=== PATIENT | female | born 1985 | race Caucasian/White ===

== ENCOUNTER → 2017-04-27 | Outpatient (CLI) | payer OTHER ==
[~2017-04-27] MED LIST: OXYC1SOL5 PO
== END ==
LOC: HPND 11:13
PROVIDERS: ATTEND Obstetrics & Gynecology
DX: O99.281 Endocrine, nutritional and metabolic diseases complicating pregnancy, first trimester (principal)
CPT/HCPCS: 36416; 76813

== ENCOUNTER 2017-10-29 06:10 | Inpatient (IN) | payer OTHER ==
[2017-10-29] VITALS (63 sets, daily range): BP systolic 66–137; BP diastolic 37–87; PULSE 63–140; RESP 7–18; TEMP 97.9–98.2; O2SAT 98–100
[~2017-10-29] VITALS: Ht 182.9 cm; Wt 109.0 kg
[2017-10-29] MEDS ORDERED: OXYTOCIN 30 UNITS/NS 500ML PREMIX IV SCH (07:30)
[2017-10-29] MEDS ORDERED: LEVO.125 PO (07:37)
[2017-10-29] MEDS ORDERED: ZANTTAB PO (07:38)
[2017-10-29] MEDS ORDERED: PRENTAB7 (07:38)
[2017-10-29 07:40] LABS: AUTOMATED NEUTROPHIL # 10.7 TH/MM3 (1.8-7.7); BASOPHIL # 0.1 TH/MM3 (0-0.2); BASOPHIL % 0.4 % (0.0-2.0); EOSINOPHIL # 0.3 TH/MM3 (0-0.4); EOSINOPHIL % 1.7 % (0.0-4.0); HEMATOCRIT 33.3 % (35.0-46.0); HEMOGLOBIN 11.1 GM/DL (11.6-15.3); LYMPH % 23.5 % (9.0-44.0); LYMPHOCYTE # 3.8 TH/MM3 (1.0-4.8); MEAN CELL VOLUME 84.3 FL (80.0-100.0); MEAN CORPUSCULAR HEMOGLOBIN 28.1 PG (27.0-34.0); MEAN CORPUSCULAR HGB CONC 33.3 % (32.0-36.0); MEAN PLATELET VOLUME 10.5 FL (7.0-11.0); MONO % 7.4 % (0.0-8.0); MONOCYTE # 1.2 TH/MM3 (0-0.9); PLATELET COUNT 212 TH/MM3 (150-450); RED BLOOD COUNT 3.95 MIL/MM3 (4.00-5.30)
[2017-10-29 07:47] LABS: BILIRUBIN, URINE NEG (NEG); BLOOD, URINE NEG (NEG); GLUCOSE,URINE NEG (NEG); KETONE, URINE NEG (NEG); MUCUS URINE FEW /lpf (OCC); NITRITE,URINE NEG (NEG); SQUAMOUS EPITHELIAL CELL URINE 1 /hpf (0-5); URINE COLOR LIGHT-YELLOW (YELLW/STRAW); URINE LEUKOCYTE ESTERASE NEG (NEG)
[2017-10-29] MEDS ORDERED: NS 1000 ML IV PRN (08:15)
[2017-10-29] MEDS ORDERED: LACTATED RINGER'S 1000 ML IV SCH (08:15)
[2017-10-29] MEDS ORDERED: ONDANSETRON HCL 4 MG/2 ML VIAL IV PUSH PRN (08:15)
[2017-10-29] MEDS ORDERED: CITRIC ACID-SODIUM CITRATE LIQ 30 ML UDC PO SCH (08:15)
[2017-10-29] MEDS ORDERED: LIDOCAINE HCL 1% 50 ML VIAL I-DERMAL PRN (08:15)
[2017-10-29] MEDS ORDERED: MINERAL OIL 10 ML VIAL TOPICAL PRN (08:15)
[2017-10-29] MEDS ORDERED: LIDOCAINE HCL 1% 50 ML VIAL INFIL PRN (08:15)
[2017-10-29] MEDS ORDERED: OXYTOCIN 30 UNITS 500ML PREMIX IV ONE (08:15)
[2017-10-29] MEDS ORDERED: LACTATED RINGER'S 1000 ML BOLUS IV PRN (08:15)
[2017-10-29] MEDS ORDERED: NS 500 ML BOLUS IV PRN (08:15)
[2017-10-29] MEDS ORDERED: ePHEDrine/NS 25 MG/5 ML SYRINGE ONE ×2 (08:52→09:19)
[2017-10-29] MEDS ORDERED: fentaNYL 2MCG-BUPIV 0.125% INJ 100 ML ONE (08:52)
[2017-10-29] MEDS ORDERED: BENZOCAINE 20% TOPICAL SPRAY 60 ML CAN TOPICAL PRN (12:30)
[2017-10-29] MEDS ORDERED: WITCH HAZEL 50%/GLYCERIN 12.5% 40 PAD JAR TOPICAL PRN (12:30)
[2017-10-29] MEDS ORDERED: ALUMINUM/MAGNESIUM/SIMETH 30 ML CUP PO PRN (12:30)
[2017-10-29] MEDS ORDERED: OXYTOCIN 30 UNITS-500ML PREMIX 500 ML IV SCH (12:30)
[2017-10-29] MEDS ORDERED: SODIUM CHLORIDE 0.9% FLUSH 10 ML FLUSH IV FLUSH PRN (12:30)
--- NOTE | 2017-10-29 12:47 | MH ---
cc: ELSI GILLIAM DATE OF ADMISSION: 10/29/2017 ADMITTING DIAGNOSIS Term . HISTORY OF PRESENT ILLNESS The patient is a 32-year-old, , white female para 2-0-1-2 and EDC of 11/05/17 by early ultrasound. Her course ws benign. She had normal first TM screen and Panorama testing. PAST MEDICAL HISTORY Right shoulder repair in 2006. MEDICATIONS Vitamins and thyroid. ALLERGIES NONE. TRANSFUSIONS None. OBSTETRICAL HISTORY Two vaginal delivers at term. SOCIAL HISTORY . 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 Alcohol, tobacco and drugs are none. PHYSICAL EXAMINATION GENERAL: A gravid white female, in no distress. HEENT: Exam is normal. CHEST: Chest is clear. HEART: Regular rate. BREASTS: The breasts were symmetrical. ABDOMEN: Benign. Gravid. EFW of 3800 grams. PELVIC: Cervix is now 5-6, 70%, vertex gestation, AROM clear. GBS negative. Anticipate vaginal discharge. MD MELQUIADES Olivia/BJF /9:58 AM /12:05 PM
[2017-10-29] MEDS ORDERED: ONDANSETRON ODT 4 MG TAB PO PRN (13:00)
[2017-10-29] MEDS ORDERED: DOCUSATE SODIUM 50 MG/SENNA 8.6 MG TAB PO PRN (13:15)
[2017-10-29] MEDS ORDERED: oxyCODONE/ACETAMINOPHEN 5 MG/325 MG TAB PO PRN ×2 (13:15)
[2017-10-29] MEDS: IBUPROFEN 800 MG TAB PO PRN ×2 (15:42→23:52)
[2017-10-29] MEDS ORDERED: DIPHTH/TETANUS/ACEL PERTUSSIS (BOOSTER) 0.5 ML VIAL/PFS IM ONE (16:00)
[2017-10-29] MEDS ORDERED: MEASLES, MUMPS, RUBELLA VACCINE 0.5 ML VIAL SQ ONE (16:00)
[2017-10-29] MEDS ORDERED: fentaNYL 2MCG-BUPIV 0.125% 100 ML EPIDURAL SCH (17:00)
[2017-10-29] MEDS ORDERED: DO NOT ADMINISTER ANTICOAGULANTS PRN (17:00)
[2017-10-29] MEDS ORDERED: ePHEDrine/NS 25 MG/5 ML SYRINGE IV PUSH PRN (17:00)
[2017-10-29] MEDS ORDERED: NO SYSTEM NARCOTICS PRN (17:00)
[2017-10-29] MEDS ORDERED: ZOLPIDEM TARTRATE 5 MG TAB PO PRN (21:00)
[2017-10-29] MEDS ORDERED: SODIUM CHLORIDE 0.9% FLUSH 10 ML FLUSH IV FLUSH SCH (21:00)
[2017-10-30 08:00] VITALS: BP 121/77; PULSE 62; RESP 20; TEMP 96.6; O2SAT 0
[2017-10-30] MEDS: IBUPROFEN 800 MG TAB PO PRN ×3 (08:11→23:29)
[2017-10-30] MEDS: ACETAMINOPHEN 325 MG TAB PO PRN ×3 (08:12→23:32)
[2017-10-30 08:56] LABS: AUTOMATED NEUTROPHIL # 10.3 TH/MM3 (1.8-7.7); BASOPHIL # 0.1 TH/MM3 (0-0.2); BASOPHIL % 0.4 % (0.0-2.0); EOSINOPHIL # 0.1 TH/MM3 (0-0.4); EOSINOPHIL % 1.1 % (0.0-4.0); HEMATOCRIT 29.8 % (35.0-46.0); LYMPHOCYTE # 2.7 TH/MM3 (1.0-4.8); MEAN CELL VOLUME 84.1 FL (80.0-100.0); MEAN CORPUSCULAR HEMOGLOBIN 28.4 PG (27.0-34.0); MEAN CORPUSCULAR HGB CONC 33.7 % (32.0-36.0); MONO % 6.1 % (0.0-8.0); MONOCYTE # 0.9 TH/MM3 (0-0.9); NEUT % 73.4 % (16.0-70.0); PLATELET COUNT 195 TH/MM3 (150-450); RED BLOOD COUNT 3.54 MIL/MM3 (4.00-5.30); RED CELL DISTRIBUTION WIDTH 15.7 % (11.6-17.2)
[2017-10-30] MEDS ORDERED: INFLUENZA VIRUS VACCINE (QUADRIVALENT) 0.5 ML SYR IM ONE (10:00)
[2017-10-30] MEDS: LEVOTHYROXINE SODIUM 125 MCG TAB PO SCH (15:09)
[2017-10-30 19:46] VITALS: BP 120/79; PULSE 70; RESP 16; TEMP 98.1
[2017-10-31] MEDS: LEVOTHYROXINE SODIUM 125 MCG TAB PO SCH (05:30)
[2017-10-31 07:40] VITALS: BP 121/70; PULSE 61; RESP 16; TEMP 98.5; O2SAT 98
[2017-10-31] MEDS: ACETAMINOPHEN 325 MG TAB PO PRN ×2 (07:48→15:53)
[2017-10-31] MEDS: IBUPROFEN 800 MG TAB PO PRN ×2 (07:48→15:52)
--- NOTE | 2017-10-31 08:17 | HHI.DCPOC ---
Discharge Care Plan Report Symptoms to Your Doctor -Temperature above 100.5 degrees -Redness, of incision or excessive or foul smelling drainage -Unusual pain or calf pain -Increased vaginal bleeding -Painful or difficulty urinating -Feelings of extreme sadness or anxiety after 2 weeks Goals to Promote Your Health * To prevent worsening of your condition and complications * To maintain your health at the optimal level Directions to Meet Your Goals Take your medications as prescribed Follow your dietary instruction Follow activity as directed Ensure plenty of rest for recovery Drink fluids for hydration Keep your appointments as scheduled Take your immunizations and boosters as scheduled If your symptoms worsen call your PCP, if no PCP go to Urgent Care Center or Emergency Room Smoking is Dangerous to Your Health. Avoid second hand smoke Call the 24-hour crisis hotline for domestic abuse at Emmanuel Wynne MD Oct 31, 2017 08:17
--- NOTE | 2017-10-31 08:58 | MD ---
cc: ELSI GILLIAM ADMISSION DATE: 10/29/2017 DISCHARGE DATE: 10/31/2017 [place] Visit Search.Discharge Date ADMISSION DIAGNOSIS Term . DISCHARGE DIAGNOSES 1. Term , delivered. 2. macrosomia. HISTORY OF PRESENT ILLNESS The patient is a 32-year-old white female, para 2-0-1-2, with an EDC of 11/05/2017 by early ultrasound. Her course was benign. She had normal Panorama and first TM screen. Her Strep culture was negative. HOSPITAL COURSE She was admitted for induction of labor on 10/29/2017 in view of her term gestation and favorable cervix admitted at 5 cm. She received Pitocin induction, epidural anesthesia and rapidly progressed to a spontaneous vaginal delivery over the small tear of a viable, vigorous male. Apgars were 7 and 8, weight was 10 pounds, 12 ounces. she did well and was discharged home in good condition on 10/31/2017. The baby had some grunting, was maintained in the NICU for antibiotic therapy and treatment of probable TPN. The mild was carefully instructed in and perineal care. She is to return to see in 6 weeks. The baby will be circumcised when cleared for discharge and Mom was instructed in circumcision care. She will call me for any abnormal symptoms. MD MELQUIADES Olivia/GRACE /8:12 AM /8:33 AM
== END 2017-10-31 16:37 | disposition home or self-care (01) | DRG 775 ==
LOC: H2EA 06:10 → UNDOADMIN 06:10 → H1EA 14:11
PROVIDERS: ADMIT Obstetrics & Gynecology; ATTEND Obstetrics & Gynecology
PROC: 10E0XZZ Delivery of Products of Conception, External Approach (ICD-10-PCS; principal; 2017-10-29)
PROC: 3E033VJ Introduction of Other Hormone into Peripheral Vein, Percutaneous Approach (ICD-10-PCS; 2017-10-29)
PROC: 10907ZC Drainage of Amniotic Fluid, Therapeutic from Products of Conception, Via Natural or Artificial Opening (ICD-10-PCS; 2017-10-29)
PROC: 0HQ9XZZ Repair Perineum Skin, External Approach (ICD-10-PCS; 2017-10-29)
DX: O36.60X0 Maternal care for excessive fetal growth, unspecified trimester, not applicable or unspecified (principal); E03.9 Hypothyroidism, unspecified; O99.284 Endocrine, nutritional and metabolic diseases complicating childbirth; Z37.0 Single live birth; Z3A.39 39 weeks gestation of pregnancy
CPT/HCPCS: 59025; 80307; 81001; 85025; 85461; 86850; 86900; 86901; 90384; 90707; 90715; J2590; J2790; J7120